=== PATIENT | female | born 1945 | race Caucasian/White ===

== ENCOUNTER 2020-08-02 11:04 | Emergency (ER) | payer MEDICARE, OTHER ==
[2020-08-02 16:00] LABS: BUN/CREATININE RATIO 18 (0-10)
[2020-08-02 16:57] LABS: HEMOGLOBIN 13.3 gm/dl (12.3-15.3); RED BLOOD COUNT 4.32 M/UL (4.00-5.10)
[2020-08-02] MEDS ORDERED: HYDROCHLOROTHIA25 MG PO (19:06)
== END 2020-08-02 19:51 | disposition home or self-care (01) ==
LOC: ER1 11:04
PROVIDERS: Emergency Medicine
DX: I10 Essential (primary) hypertension (principal); R91.8 Other nonspecific abnormal finding of lung field; J44.9 Chronic obstructive pulmonary disease, unspecified; F17.200 Nicotine dependence, unspecified, uncomplicated; Z95.5 Presence of coronary angioplasty implant and graft; Z79.899 Other long term (current) drug therapy; Z20.822 Contact with and (suspected) exposure to COVID-19
CPT/HCPCS: 71045; 80053; 82550; 82553; 83690; 83874; 84484; 85025; 93005; 96374; 96376; 99284; J0360; U0002

== ENCOUNTER 2021-04-11 18:05 | Emergency (ER) | payer OTHER, MEDICARE ==
[~2021-04-11 18:05] MED LIST: HYDROCHLOROTHIA25 MG PO
[2021-04-11 19:58] LABS: HEMOGLOBIN 14.7 gm/dl (12.3-15.3); RED BLOOD COUNT 4.64 M/UL (4.00-5.10); WHITE BLOOD COUNT 14.8 K/UL (4.5-11.0)
[2021-04-11] MEDS ORDERED: LODINE CAP 300300 MG PO (21:39)
[2021-04-11] MEDS ORDERED: NORFLEX 100 MG100 MG PO (21:39)
[2021-04-11] MEDS ORDERED: OMNICEF 300 MG300 MG PO (21:45)
== END 2021-04-11 21:53 | disposition home or self-care (01) ==
LOC: ER1 18:05
PROVIDERS: Physician Assistant
DX: S46.911A Strain of unspecified muscle, fascia and tendon at shoulder and upper arm level, right arm, initial encounter (principal); S33.5XXA Sprain of ligaments of lumbar spine, initial encounter; S13.4XXA Sprain of ligaments of cervical spine, initial encounter; M25.551 Pain in right hip; R51.9 Headache, unspecified; I25.10 Atherosclerotic heart disease of native coronary artery without angina pectoris; E11.9 Type 2 diabetes mellitus without complications; J44.9 Chronic obstructive pulmonary disease, unspecified; I10 Essential (primary) hypertension; F17.210 Nicotine dependence, cigarettes, uncomplicated; V49.40XA Driver injured in collision with unspecified motor vehicles in traffic accident, initial encounter; Y92.009 Unspecified place in unspecified non-institutional (private) residence as the place of occurrence of the external cause
CPT/HCPCS: 70450; 71045; 72125; 72128; 72131; 72192; 73030; 73090; 73502; 80053; 81001; 85025; 87077; 87086; 87186; 99284